=== PATIENT | male | born 1990 | race Caucasian/White ===

== ENCOUNTER 2017-10-16 20:18 | Emergency (ER) | payer OTHER ==
[~2017-10-16] VITALS: Ht 175.3 cm; Wt 102.6 kg
[2017-10-16 20:29] VITALS: BP 150/91
--- NOTE | 2017-10-16 20:58 | NUR ---
PT AMBULATED TO ER [facility]
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
[2017-10-16] MEDS: IBUPROFEN 600 MG TAB PO ONE (22:45)
[2017-10-16 23:01] VITALS: BP 130/86
== END 2017-10-16 23:08 | disposition home or self-care (01) ==
LOC: MED 20:18
DX: S20.212A Contusion of left front wall of thorax, initial encounter (principal); W19.XXXA Unspecified fall, initial encounter; Y93.E1 Activity, personal bathing and showering; Y92.091 Bathroom in other non-institutional residence as the place of occurrence of the external cause; Y99.8 Other external cause status
CPT/HCPCS: 71100; 99284

== ENCOUNTER 2018-10-06 10:38 | Emergency (ER) | payer SELFPAY ==
[~2018-10-06] VITALS: Ht 180.3 cm; Wt 108.9 kg
[2018-10-06 10:46] VITALS: BP 144/86
--- NOTE | 2018-10-06 10:58 | NUR ---
BIB SELF WITH C/O SORE THROAT, COUGH, + FEVER, 98.7 AT THIS TIME, + DIARRHEA, NO REDNESS OR SWELLING IN THE THROAT, + GREEN MUCUS . DENIES N/V/D; SKIN IS PINK/WARM/DRY; AAOX4 WITH EVEN AND STEADY GAIT; LUNGS CLEAR BL; HR EVEN AND REGULAR; PT DENIES ANY FEVER, CP, SOB AT THIS TIME; PATIENT STATES PAIN OF 5/10 AT THIS TIME; VSS; PATIENT POSITIONED FOR COMFORT; HOB ELEVATED; BEDRAILS UP X2; BED DOWN. ER MD MADE AWARE OF PT STATUS.
--- NOTE | 2018-10-06 11:44 | NUR ---
Patient being evaluated by physician at bedside.
[2018-10-06] MEDS ORDERED: KETOROLAC 60 MG/2 ML VIAL IM ONE (11:50)
[2018-10-06 12:39] VITALS: BP 135/80
--- NOTE | 2018-10-06 12:40 | NUR ---
Patient discharged with v/s stable. Written and verbal after care instructions given and explained. Patient alert, oriented and verbalized understanding of instructions. Ambulatory with steady gait. All questions addressed prior to discharge. ID band removed. Patient advised to follow up with PMD. Rx of prednisone, motrin and norco given. Patient educated on indication of medication including possible reaction and side effects. Opportunity to ask questions provided and answered.
== END 2018-10-06 12:40 | disposition home or self-care (01) ==
LOC: MED 10:38
DX: R05 Cough (principal); R50.9 Fever, unspecified; J02.9 Acute pharyngitis, unspecified; R19.7 Diarrhea, unspecified
CPT/HCPCS: 96372; 99283; J1885

== ENCOUNTER 2020-09-11 20:32 | Emergency (ER) | payer SELFPAY ==
[~2020-09-11] VITALS: Ht 175.3 cm; Wt 117.9 kg
[2020-09-11 20:37] VITALS: BP 149/80
[2020-09-11] MEDS ORDERED: ACETAMINOPHEN EXTRA STRENGTH 500 MG TAB PO ONE (20:50)
[2020-09-11 21:32] VITALS: BP 134/80
== END 2020-09-11 21:31 | disposition home or self-care (01) ==
LOC: MED 20:32
DX: S01.01XA Laceration without foreign body of scalp, initial encounter (principal); W22.8XXA Striking against or struck by other objects, initial encounter; Y93.89 Activity, other specified; Y92.89 Other specified places as the place of occurrence of the external cause; Y99.8 Other external cause status
CPT/HCPCS: 90471; 90715; 99283

== ENCOUNTER 2020-12-03 15:02 | Emergency (ER) | payer MEDICAID ==
[~2020-12-03] VITALS: Ht 175.3 cm; Wt 113.4 kg
[2020-12-03 15:07] VITALS: BP 161/100
--- NOTE | 2020-12-03 15:10 | NUR ---
PT AMBULATED TO BED 5, STEADY GAIT
--- NOTE | 2020-12-03 15:23 | NUR ---
DR. GIRON AT BEDSIDE EVALUATING PT.
--- NOTE | 2020-12-03 15:32 | NUR ---
30 Y/M PRESENTS TO ED C/O BILAT FLANK PAIN X2 WEEKS. PT DENIES INJURY. DENIES ANY DYSURIA BUT STATES HE IS HAVING PAIN WHEN PASSING BOWELS. PT STATES HE IS HAVING SOME CONSTIPATION, LAST BM WAS TODAY. FLANK PAIN IS 10/10. PT REPORTS PAIN IS WORSE WITH MOVEMENT AND WITH TWISTING MOTION. NO PMH NKDA
[2020-12-03] MEDS ORDERED: KETOROLAC 30 MG/ML VIAL IM ONE (15:35)
--- NOTE | 2020-12-03 16:05 | NUR ---
Report received from [place] White; care assumed.
--- NOTE | 2020-12-03 16:05 | NUR ---
TRANSFER OF CARE TO [facility] PENALOZA AT THIS TIME.
--- NOTE | 2020-12-03 16:25 | NUR ---
PT REQUESTING TO EAT FOOD HIS FAMILY BROUGHT. DR. BREE SOUTH FOR HIM TO EAT.
[2020-12-03 16:56] LABS: ANION GAP 12.7 (8-16); CARBON DIOXIDE 27.3 mmol/L (21-32)
[2020-12-03 17:29] LABS: BARBITURATE, URINE NEGATIVE ng/ml (NEG <=200); BENZODIAZEPINE, URINE NEGATIVE ng/mL (NEG <=200); CANNABINOID, URINE NEGATIVE ng/mL (NEG <=50); COCAINE, URINE POSITIVE ng/mL (NEG <=300); OPIATE, URINE NEGATIVE ng/mL (NEG <=2000); PHENCYCLIDINE SCREEN,URINE NEGATIVE ng/mL (NEG <=25)
[2020-12-03] MEDS ORDERED: NAPR-54 PO (17:48)
[2020-12-03 17:57] VITALS: BP 124/73
== END 2020-12-03 17:57 | disposition home or self-care (01) ==
LOC: MED 15:02
DX: R10.9 Unspecified abdominal pain (principal); F19.10 Other psychoactive substance abuse, uncomplicated; M54.5 Low back pain; F17.210 Nicotine dependence, cigarettes, uncomplicated
CPT/HCPCS: 36415; 80048; 80305; 81002; 96372; 99283; J1885

== ENCOUNTER 2021-01-16 00:15 | Emergency (ER) | payer SELFPAY ==
[~2021-01-16] VITALS: Ht 170.2 cm; Wt 95.3 kg
[~2021-01-16 00:15] MED LIST: NAPR-54 PO
[2021-01-16 00:37] VITALS: BP 125/82
[2021-01-16] MEDS ORDERED: FLUORESCEIN OPTH STRIP 1 MG ONE (00:44)
[2021-01-16] MEDS ORDERED: TETRACAINE HCL/PF 0.5% OPTH 4 ML BTL ONE (00:44)
[2021-01-16] MEDS ORDERED: FLUORESCEIN OPTH STRIP 1 MG OP ONE (00:50)
[2021-01-16] MEDS ORDERED: ERYTHROMYCIN 0.5% OPTH OINT 1 GM TUBE OP ONE (00:50)
[2021-01-16] MEDS ORDERED: TETRACAINE HCL/PF 0.5% OPTH 4 ML BTL OP ONE (00:50)
[2021-01-16] MEDS ORDERED: KETO5SOL OP (01:19)
[2021-01-16] MEDS ORDERED: TOBR5SOL17 RIGHT EYE (01:19)
--- NOTE | 2021-01-16 01:27 | NUR ---
d/c with VSS. d/c education given. rx of tobramycin and ketorolac eyedrops given.
== END 2021-01-16 01:28 | disposition home or self-care (01) ==
LOC: MED 00:15
DX: H10.9 Unspecified conjunctivitis (principal); Z79.899 Other long term (current) drug therapy
CPT/HCPCS: 99284

== ENCOUNTER 2021-10-24 13:39 | Emergency (ER) | payer MEDICAID ==
[~2021-10-24] VITALS: Ht 175.3 cm; Wt 101.2 kg
[~2021-10-24 13:39] MED LIST changes: +KETO5SOL OP; +TOBR5SOL17 RIGHT EYE
[2021-10-24 13:42] VITALS: BP 113/70
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
--- NOTE | 2021-10-24 13:45 | NUR ---
PT AMBULATED TO BED 10
[2021-10-24] MEDS ORDERED: SULFAMETH/TRIMETH DS 800/160MG 1 TAB PO ONE (13:55)
[2021-10-24] MEDS ORDERED: LIDOCAINE MPF 1% 10 MG/ML VIAL INJ ONE ×2 (13:55→14:45)
[2021-10-24] MEDS ORDERED: cephALEXin 500 MG CAP PO ONE (13:55)
[2021-10-24] MEDS ORDERED: HYDROcodone/APAP 10/325 MG 1 TAB TAB PO STA (14:05)
[2021-10-24] MEDS ORDERED: ETHYL CHLORIDE 105 ML SPR TP ONE ×2 (14:31→14:45)
[2021-10-24] MEDS ORDERED: CEPH500C16 PO ×2 (14:52→16:55)
[2021-10-24] MEDS ORDERED: SULF-59 PO ×2 (14:52→16:55)
--- NOTE | 2021-10-24 15:08 | NUR ---
Patient discharged with v/s stable. Written and verbal after care instructions given and explained. Patient alert, oriented and verbalized understanding of instructions. Ambulatory with steady gait. All questions addressed prior to discharge. ID band removed. Patient advised to follow up with PMD. Rx of keflex/bactrim given. Patient educated on indication of medication including possible reaction and side effects. Opportunity to ask questions provided and answered.
== END 2021-10-24 15:08 | disposition home or self-care (01) ==
LOC: MED 13:39
DX: L02.31 Cutaneous abscess of buttock (principal); L03.317 Cellulitis of buttock; F11.90 Opioid use, unspecified, uncomplicated; Z79.899 Other long term (current) drug therapy
CPT/HCPCS: 10060; 99284; J2001

== ENCOUNTER 2022-01-30 18:33 | Emergency (ER) | payer MEDICAID, OTHER ==
[~2022-01-30] VITALS: Ht 175.3 cm; Wt 99.8 kg
[~2022-01-30 18:33] MED LIST changes: +CEPH500C16 PO; +SULF-59 PO
[2022-01-30 18:50] VITALS: BP 126/73
--- NOTE | 2022-01-30 18:53 | NUR ---
TO LOBBY A/W BED AMBULATORY
--- NOTE | 2022-01-30 19:31 | NUR ---
Patient ambulated to bed 5.
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
--- NOTE | 2022-01-30 20:15 | NUR ---
Dr. Dueñas examining patient.
[2022-01-30] MEDS ORDERED: KETOROLAC 60 MG/2 ML VIAL IM ONE (20:20)
[2022-01-30] MEDS ORDERED: SILVER SULFADIAZINE 1% 50 GM JAR TP ONE (20:20)
[2022-01-30] MEDS ORDERED: ACET-8386 PO (20:29)
[2022-01-30] MEDS ORDERED: IBUP-2213 PO (20:29)
[2022-01-30 20:48] VITALS: BP 125/65
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
--- NOTE | 2022-01-30 20:50 | NUR ---
Chart checked and completed.
== END 2022-01-30 20:48 | disposition home or self-care (01) ==
LOC: MED 18:33
DX: T25.222A Burn of second degree of left foot, initial encounter (principal); F17.200 Nicotine dependence, unspecified, uncomplicated; Z79.899 Other long term (current) drug therapy; Z98.890 Other specified postprocedural states; X08.8XXA Exposure to other specified smoke, fire and flames, initial encounter; Y93.89 Activity, other specified; Y92.89 Other specified places as the place of occurrence of the external cause; Y99.8 Other external cause status
CPT/HCPCS: 16020; 96372; 99283; J1885

== ENCOUNTER 2022-03-07 21:48 | Emergency (ER) | payer MEDICAID ==
[~2022-03-07] VITALS: Ht 170.2 cm; Wt 92.5 kg
[~2022-03-07 21:48] MED LIST changes: +ACET-8386 PO; +IBUP-2213 PO
[2022-03-07 21:58] VITALS: BP 179/82
[2022-03-07] MEDS ORDERED: diphenhydrAMINE 50 MG/ML VIAL IM ONE (22:05)
[2022-03-07] MEDS ORDERED: LORazepam 2 MG/ML VIAL IM ONE (22:05)
[2022-03-07] MEDS ORDERED: HALOPERIDOL IM 5 MG/ML VIAL IM ONE (22:05)
--- NOTE | 2022-03-08 00:30 | NUR ---
Patient discharged with v/s stable. Written and verbal after care instructions given and explained BY DR. FLOR. Patient verbalized understanding. Ambulatory with steady gait. All questions addressed prior to discharge. Advised to follow up with PMD.
== END 2022-03-08 00:30 | disposition home or self-care (01) ==
LOC: MED 21:48
DX: F11.23 Opioid dependence with withdrawal (principal)
CPT/HCPCS: 96372; 99284; J1200; J1630; J2060

== ENCOUNTER 2022-12-12 13:34 | Emergency (ER) | payer MEDICAID, OTHER ==
[~2022-12-12] VITALS: Ht 175.3 cm; Wt 93.9 kg
[~2022-12-12 13:34] MED LIST changes: -ACET-8386 PO; +ACET-8905 PO; +TOBR5DRO10 RIGHT EYE; -TOBR5SOL17 RIGHT EYE
[2022-12-12 13:53] VITALS: BP 124/79
--- NOTE | 2022-12-12 13:58 | NUR ---
AMB. TO BED W NO DISTRESS.
[2022-12-12 14:29] LABS: APPEARANCE,URINE CLEAR (CLEAR); BILIRUBIN,URINE NEGATIVE (NEGATIVE); BLOOD, URINE NEGATIVE (NEGATIVE); COLOR,URINE YELLOW (YELLOW); LEUKOCYTE ESTERASE ,URINE 1+ (NEGATIVE); NITRITE, URINE NEGATIVE (NEGATIVE); UGLUCOSE NEGATIVE (NEGATIVE)
[2022-12-12 14:31] LABS: BASOPHILS % (AUTO) 0.3 % (0.0-2.0); HEMATOCRIT 39.8 % (36-52); LYMPHOCYTES # (AUTO) 1.6 K/uL (2.0-11.5); MEAN CORPUSCULAR HEMOGLOBIN 29 pg (27-31); MEAN CORPUSCULAR HGB CONC 35 g/dL (33-37); MEAN CORPUSCULAR VOLUME 83.6 fL (80-94); MONOCYTES # (AUTO) 0.5 K/uL (0.8-1.0); MONOCYTES % (AUTO) 6.8 % (1.7-9.3); NEUTROPHILS # (AUTO) 5.2 K/uL (1.8-7.7); NEUTROPHILS % (AUTO) 70.9 % (42.2-75.2); PLATELET COUNT (AUTO) 350 K/uL (140-450); RED BLOOD CELL COUNT(AUTO) 4.77 MIL/uL (4.20-6.10); RED CELL DISTRIBUTION WIDTH 14.3 % (11.6-13.7); WHITE BLOOD COUNT (AUTO) 7.4 K/uL (4.8-10.8)
[2022-12-12 14:52] LABS: CALCIUM OXALATE CRYSTALS,UR 0-10 /HPF (None Seen)
[2022-12-12] MEDS ORDERED: IBUP-2213 PO (14:56)
[2022-12-12] MEDS ORDERED: CEPH500C16 PO (14:56)
[2022-12-12] MEDS ORDERED: DOXY-690 PO (14:56)
[2022-12-12 15:05] LABS: ALBUMIN 3.4 g/dL (3.4-5.0); ANION GAP 9.7 (8-16); CARBON DIOXIDE 27.9 mmol/L (21-32); CREATININE 0.8 mg/dL (0.6-1.3); POTASSIUM 3.6 mmol/L (3.5-5.1); TOTAL BILIRUBIN 0.7 mg/dL (0.0-1.0)
[2022-12-12] MEDS ORDERED: cefTRIAXone 1,000 MG in LIDOCAINE MPF 1% 2.1 ML IM ONE (15:35)
[2022-12-12] MEDS ORDERED: cefTRIAXone 1,000 MG VIAL ONE (15:43)
[2022-12-12] MEDS ORDERED: LIDOCAINE MPF 1% 5 ML ONE (15:44)
[2022-12-12 15:52] VITALS: BP 139/92
--- NOTE | 2022-12-13 17:11 | NUR ---
CHRIS PCR test results discussed the Dr. Pearl. reviewed case and no new orders received. Per MD Pt has been adequately treated in the ER and adequate Rx given to pt. No further orders received.
== END 2022-12-12 15:52 | disposition home or self-care (01) ==
LOC: MED 13:34
DX: R53.1 Weakness (principal); N39.0 Urinary tract infection, site not specified; Z79.899 Other long term (current) drug therapy
CPT/HCPCS: 36415; 71045; 80053; 81001; 82140; 85025; 87086; 87491; 96372; 99284; J0696; J2001